=== PATIENT | female | born 1950 | race Caucasian/White ===

== ENCOUNTER → 2022-09-27 11:48 | Outpatient (CLI) | payer MEDICARE, SELFPAY ==
--- NOTE | ~2022-09-27 | DEXA_ITS ---
Bone Density Report Name: MICHEAL MONDRAGON Age: 72 Sex: Female Ethnicity: White Date of : 1950 Indication: postmenopausal; screening for osteoporosis; height loss; hysterectomy; Referring Provider: AAYUSH[facility] Study: Bone densitometry was performed. Exam Date: September 27, 2022 Accession number: [id number] Bone Density: Region BMD T-score Z-score Classification AP Spine (L1-L4) 1.001 -0.4 2.0 Normal Femoral Neck (Left) 0.723 -1.1 0.9 Osteopenia Total Hip (Left) 0.891 -0.4 1.3 Normal Femoral Neck (Right) 0.766 -0.7 1.3 Normal Total Hip (Right) 0.897 -0.4 1.4 Normal Total Hip Mean 0.894 -0.4 1.4 Normal World Health Organization criteria for BMD impression classify patients as: Normal (T-score at or above -1.0), Osteopenia (T-score between -1.0 and -2.5), or Osteoporosis (T-score at or below -2.5). 10-year Fracture Risk(1): Major Osteoporotic Fracture 9.0% Hip Fracture 1.4% Reported Risk Factors: [place] (), Neck BMD=0.723, BMI=36.7 (1) FRAX(R) Version 3.08. Fracture probability calculated for an untreated patient. Fracture probability may be lower if the patient has received treatment. Previous Exams: Region Exam Age BMD T-score BMD Change BMD Change Date g/cm2 vs Baseline vs Previous AP Spine(L1-L4) 09/27/2022 72 1.001 -0.4 0.183 0.029 10/05/2008 58 0.972 -0.7 0.154* 0.154* 07/30/2006 56 0.818 -2.1 Total Hip(Left) 09/27/2022 72 0.891 -0.4 -0.072 -0.068 10/05/2008 58 0.959 0.1 -0.004 -0.004 07/30/2006 56 0.963 0.2 Total Hip(Right) 09/27/2022 72 0.897 -0.4 -0.124 -0.095 10/05/2008 58 0.993 0.4 -0.028* -0.028* 07/30/2006 56 1.021 0.6 *Denotes significance at 95% confidence level, LSC for AP Spine = 0.022 g/cm2, LSC for Total Hip = 0.027 g/cm2 Clinical Information Provided by Patient: Has used the following medications: Calcium Has the following medical conditions: Hysterectomy Patient maximum height was 64.5 Menopause Age: 51 No regular weight bearing exercise Drinks caffeinated beverages Onset of menses at age 11 Number of children 1 Impression: The patient has low bone mass, based on the Left Femoral Neck T-score. The patient has an estimated ten-year risk of hip fracture of 1.4% and an estimated ten-year risk of major fracture of 9%, based on the WHO
--- NOTE | ~2022-09-27 | MM_ITS ---
EXAMINATION: MM screening ki BI w suzie HISTORY: Screening TECHNIQUE: Craniocaudal and mediolateral oblique 3-D tomosynthesis images were obtained and synthetic 2-D images were generated. CAD analysis was submitted and interpreted. COMPARISON: Comparison to multiple prior studies sequentially, with oldest reviewed study dated 11/2013. BREAST PARENCHYMAL COMPOSITION: Breast composed of scattered areas of fibroglandular density FINDINGS: There is no evidence of suspicious mass, calcification, or architectural distortion to sugg est malignancy in either breast. There has been no suspicious interval change. IMPRESSION: 1. No mammographic evidence of malignancy. 2. Recommend routine screening mammography in one year. BI-RADS Category 1: Negative Reviewed, dictated and finalized at location A. ING CHECKER
--- NOTE | ~2022-09-27 | XR_ITS ---
Right Knee Technique: AP, lateral, and sunrise views were obtained. Clinical History: Osteoarthritis Findings: No fracture or dislocation is seen. There is severe osteoarthritis of the patellofemoral co mpartment, with joint space narrowing and osteophyte formation. There is mild to moderate degenerativ e change of the medial and lateral compartments. Soft tissues are unremarkable. No joint effusion is seen. Impression: Severe patellofemoral compartment osteoarthritis. Mild to moderate osteoarthritis of the medial and lateral compartments. Reviewed, dictated and finalized at location M. NG MAKER Impression: Severe patellofemoral compartment osteoarthritis. Mild to moderate osteoarthritis of the medial and lateral compartments.
== END ==
PROVIDERS: PCP Internal Medicine; Visit Provider Internal Medicine
DX: Z12.31 Encounter for screening mammogram for malignant neoplasm of breast (principal); M19.90 Unspecified osteoarthritis, unspecified site; Z78.0 Asymptomatic menopausal state; M17.11 Unilateral primary osteoarthritis, right knee; R92.8 Other abnormal and inconclusive findings on diagnostic imaging of breast; M85.852 Other specified disorders of bone density and structure, left thigh
CPT/HCPCS: 73562; 77063; 77067; 77080